=== PATIENT | male | born 1985 | race Caucasian/White ===

== ENCOUNTER → 2020-12-29 17:44 | Outpatient (BNVA) | payer OTHER, SELFPAY | PROVIDERS: Visit Provider Emergency Medicine | DX: K04.7 Periapical abscess without sinus (principal); Z20.822 Contact with and (suspected) exposure to COVID-19 | CPT/HCPCS: 87635 ==

== ENCOUNTER → 2021-01-06 09:50 | Outpatient (BNVA) | payer SELFPAY | PROVIDERS: Visit Provider Nurse Practitioner Family | DX: R30.0 Dysuria (principal); B99.9 Unspecified infectious disease; A64 Unspecified sexually transmitted disease | CPT/HCPCS: 81000; 87491; 87591; 87661 ==